=== PATIENT | female | born 1995 | race Caucasian/White ===

== ENCOUNTER → 2016-04-28 | Outpatient (CLI) | payer BC ==
--- NOTE | 2016-04-28 15:58 | US ---
EXAMINATION TYPE: US kidneys/renal and bladder DATE OF EXAM: 04/28/2016 2:46 PM COMPARISON: NONE CLINICAL HISTORY: N39.0 UTI. Prior right flank pain; recurrent UTI EXAM MEASUREMENTS: Right Kidney: 10.9 x 5.6 x 3.7 cm Left Kidney: 10.4 x 5.7 x 5.0 cm Post Void Residual Volume: 17.2 mL TECHNOLOGIST IMPRESSION: Right Kidney: No hydronephrosis or masses seen Left Kidney: mid pole hyperechoic shadowing focus is noted = 0.2 x 0.3 x 0.3cm; prominent renal pelvi s noted but decreases in size distally Bladder: wnl Bilateral Jets seen: Yes Normal Post Void Residual: Yes There is a 2.9 mm echogenic focus in the mid polar region of the left kidney without shadowing. This may represent angiomyolipoma. 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
== END | disposition home or self-care (01) ==
LOC: RADUSWWP 14:10
PROVIDERS: ATTEND Family Medicine
DX: N39.0 Urinary tract infection, site not specified (principal)
CPT/HCPCS: 76770

== ENCOUNTER → 2020-01-12 | Outpatient (CLI) | payer BC ==
--- NOTE | 2020-01-12 20:18 | US ---
EXAMINATION TYPE: US kidneys/renal and bladder DATE OF EXAM: 01/12/2020 COMPARISON: Ultrasound 04/28/2016 CLINICAL HISTORY: 24-year-old female Z86.018 Personal history of other benign neoplasm. TECHNIQUE: Multiple sonographic images of the kidneys and bladder are obtained. FINDINGS: Right Kidney: 11.2 X 3.5 X 4.7 cm without hydronephrosis. Left Kidney: 11.1 x 5.7 x 4.6 cm without hydronephrosis. There is a tiny 8 x 8 x 7 mm cortical lesion at the midpole. This may be partially cystic with some possible internal septations or calcification . The previous tiny 3 mm echogenic focus more centrally located in the mid pole is not identified on the current exam. Bladder: wnl Bilateral Jets seen: Yes IMPRESSION: 1. No hydronephrosis. 2. Possible tiny, mildly complex cortical cyst measuring 8 mm at the left renal midpole, not clearly seen on 04/28/2016. Six-month follow-up to reassess.
== END | disposition home or self-care (01) ==
LOC: RADUSWWP 14:51
PROVIDERS: ATTEND Family Medicine
DX: Z09 Encounter for follow-up examination after completed treatment for conditions other than malignant neoplasm (principal); N28.1 Cyst of kidney, acquired; Z86.018 Personal history of other benign neoplasm
CPT/HCPCS: 76770

== ENCOUNTER → 2020-06-21 | Outpatient (CLI) | payer BC ==
--- NOTE | 2020-06-21 14:20 | US ---
EXAMINATION TYPE: US kidneys/renal and bladder DATE OF EXAM: 06/21/2020 COMPARISON: 01/12/2020 CLINICAL HISTORY: N28.1 CORTICAL CYSTS. F/U left renal lesion, pt has no complaints at this time EXAM MEASUREMENTS: Right Kidney: 11.3 x 3.7 x 5.0 cm Left Kidney: 10.7 x 4.8 x 4.7 cm Right Kidney: Appeared wnl Left Kidney: Hypoechoic lesion mid/lower pole similar in appearance and size when compared to previou s, otherwise appeared wnl Bladder: Appeared wnl Bilateral Jets seen: Only left jet visualized No hydronephrosis or nephrolithiasis. IMPRESSION: Hypoechoic lesion does not meet the criteria of a simple cyst within the left kidney measuring 8 mm. This does not appear to be significantly changed in size relative to prior exam and could represent a complicated cyst. Neoplasm not excluded. Consider either MRI or pre and postcontrast CT scan.
== END | disposition home or self-care (01) ==
LOC: RADUSWWP 13:44
PROVIDERS: ATTEND Family Medicine
DX: N28.89 Other specified disorders of kidney and ureter (principal)
CPT/HCPCS: 76770

== ENCOUNTER → 2020-07-16 | Outpatient (CLI) | payer BC ==
--- NOTE | 2020-07-17 03:12 | MR ---
EXAMINATION TYPE: MR kidney wo/w con DATE OF EXAM: 07/16/2020 COMPARISON: Ultrasound 06/21/2020 HISTORY: Cyst on Left Kidney CONTRAST: Standard multiplanar, multisequence MRI departmental protocol utilizing 6 mL intravenous Gadavist lois olinium contrast. Multiplanar multiecho imaging of the abdomen was performed without and with IV contrast. There is 9 mm sharply marginated rounded low signal lesion on the lateral cortex lower pole left kidn ey. This has low signal on T2 images and shows no enhancement. This could be a cyst that contains ca lcium. In any event the lesion appears entirely benign. Liver shows no focal defect. There is intact spleen and pancreas. Pancreatic duct appears normal. Sto mach is intact. Kidneys have normal size. There is no hydronephrosis. There is no retroperitoneal kassidy nopathy. There is no adrenal mass. There is no evidence of pleural effusion. There is no ascites. Gallbladder appears normal. There is n ormal enhancement of the portal venous system. The bile ducts are not dilated IMPRESSION: Small nonenhancing sharply marginated rounded lesion on the left kidney consistent with benign diseas e. Size is not changed compared to recent ultrasound exam.
== END | disposition home or self-care (01) ==
LOC: RADMRIMAIN 15:17
PROVIDERS: ATTEND Nurse Practitioner Family
DX: N28.1 Cyst of kidney, acquired (principal)
CPT/HCPCS: 74183; A9585

== ENCOUNTER → 2021-01-20 | Outpatient (CLI) | payer BC ==
--- NOTE | 2021-01-21 11:01 | ECHOF ---
Referral Reason:Palpitations R00.2 MEASUREMENTS -------- HEIGHT: 165.1 cm WEIGHT: 59.0 kg BP: RVIDd: 2.4 cm (< 3.3) IVSd: 0.8 cm (0.6 - 1.1) LVIDd: 4.9 cm (3.9 - 5.3) LVPWd: 1.0 cm (0.6 - 1.1) IVSs: 1.2 cm LVIDs: 3.4 cm LVPWs: 1.2 cm LAESV Index (A-L): 13.40 ml/m Ao Diam: 2.6 cm (2.0 - 3.7) AV Cusp: 1.7 cm (1.5 - 2.6) MV EXCURSION: 27.892 mm (> 18.000) MV EF SLOPE: 103 mm/s (70 - 150) EPSS: 0.5 cm MV E Joseluis: 1.10 m/s MV DecT: 148 ms MV A Joseluis: 0.76 m/s MV E/A Ratio: 1.45 RAP: 5.00 mmHg RVSP: 27.34 mmHg FINDINGS -------- Sinus rhythm. This was a technically adequate study. The left ventricular size is normal. Left ventricular wall thickness is normal. Overall left vent ricular systolic function is normal with, an EF between 55 - 60 %. The diastolic filling pattern is normal for the age of the patient {E/E'}. The right ventricle is normal in size. Normal LA size by volume 22+/-6 ml/m2. The right atrial size is normal. Interatrial and interventricular septum intact. The aortic valve is trileaflet and appears structurally normal. There is no evidence of aortic regu rgitation. There is no evidence of aortic stenosis. No mitral regurgitation. Trace tricuspid regurgitation present. There is no evidence of pulmonary hypertension. The right ventricular systolic pressure, as measured by Doppler, is 27.34mmHg. There is no pulmonic regurgitation present. The aortic root size is normal. Normal inferior vena cava with normal inspiratory collapse consistent with estimated right atrial pre ssure of 5 mmHg. There is no pericardial effusion. CONCLUSIONS -------- 1. The left ventricular size is normal. 2. Left ventricular wall thickness is normal. 3. Overall left ventricular systolic function is normal with, an EF between 55 - 60 %. 4. The diastolic filling pattern is normal for the age of the patient {E/E'} 5. Trace tricuspid regurgitation present. BODILY INJURY ADJUSTER: Zena Cervantes RDCS
== END | disposition home or self-care (01) ==
LOC: RADECHMAIN 11:31
PROVIDERS: ATTEND Family Medicine
DX: I07.1 Rheumatic tricuspid insufficiency (principal); I49.3 Ventricular premature depolarization
CPT/HCPCS: 93270; 93306

== ENCOUNTER → 2021-01-26 | Outpatient (CLI) | payer BC ==
--- NOTE | 2021-01-26 08:44 | US ---
EXAMINATION TYPE: US thyroid st tissue head/neck DATE OF EXAM: 01/26/2021 COMPARISON: NONE CLINICAL HISTORY: E04.9 Goiter. Family history GLAND SIZE: Right Lobe: 5.2x1.5x1.3 cm Overall Parenchyma: homogenous Left Lobe: 4.3x1.6x1.1 cm Overall Parenchyma: homogeneous Isthmus Thickness: 0.3 cm NODULES RIGHT: # of nodules measured on right: 0 LEFT: # of nodules measured on left: 0 ISTHMUS: # of nodules measured in the isthmus: 0 Bilateral neck scanned, no evidence of lymphadenopathy. IMPRESSION: Normal thyroid scan
--- NOTE | 2021-01-28 10:59 | P.HOLTER ---
48 hour Holter monitor shows sinus rhythm with average heart rates of 89 beats a minute ranged from 60-152 beats a minute Intermittent PVCs, ventricular couplets, often in a bigeminal pattern Sinus tachycardia 1 episode of SVT with RVR
== END | disposition home or self-care (01) ==
LOC: RADUSWWP 07:37
PROVIDERS: ATTEND Family Medicine
DX: E04.9 Nontoxic goiter, unspecified (principal)
CPT/HCPCS: 76536

== ENCOUNTER → 2024-02-29 | Outpatient (CLI) | payer BC ==
--- NOTE | 2024-02-29 17:32 | CA ---
Transthoracic Echo Report Name: Jennie Bonner Age: 28 Gender: F : 1995 Exam Date: 02/29/2024 14:49 Exam Location: [place] [facility] Ht (in): 65 Wt (lb): 130 Ordering Physician: Theodore Costello DO Attending/Referring Phys: Kelsey Barrios [employer] Zena Cervantes RDCS Procedure CPT: Indications: I50.1 LEFT VENTRICULAR FAILURE, UNSPECIFIED Cardiac Hx: Technical Quality: Fair Contrast 1: Total Dose (mL): Contrast 2: Total Dose (mL): MEASUREMENTS (Male / Female) Normal Values 2D ECHO LV Diastolic Diameter PLAX 4.9 cm 4.2 - 5.9 / 3.9 - 5.3 cm LV Systolic Diameter PLAX 3.5 cm IVS Diastolic Thickness 0.7 cm 0.6 - 1.0 / 0.6 - 0.9 cm LVPW Diastolic Thickness 0.7 cm 0.6 - 1.0 / 0.6 - 0.9 cm LV Relative Wall Thickness 0.3 RV Internal Dim ED PLAX 2.9 cm LVOT Diameter 1.5 cm LV Diastolic Volume MOD BP 102.8 cm??? 67 - 155 / 56 - 104 cm??? LV Systolic Volume MOD BP 34.9 cm??? 22 - 58 / 19 - 49 cm??? LV Ejection Fraction MOD BP 66.1 % >= 55 % LV Cardiac Index MOD BP 3506.9 cm???/min???m??? LV Diastolic Volume MOD 4C 90.2 cm??? LV Systolic Volume MOD 4C 31.7 cm??? LV Ejection Fraction MOD 4C 64.9 % LV Cardiac Index MOD 4C 3023.8 cm???/min???m??? LV Diastolic Length 4C 7.6 cm LV Systolic Length 4C 6.3 cm LV Diastolic Volume MOD 2C 105.6 cm??? LV Systolic Volume MOD 2C 37.4 cm??? LV Ejection Fraction MOD 2C 64.6 % LV Cardiac Index MOD 2C 3523.7 cm???/min???m??? LV Diastolic Length 2C 8.5 cm LV Systolic Length 2C 6.7 cm LA Volume 23.4 cm??? 18 - 58 / 22 - 52 cm??? LA Volume Index 14.2 cm???/m??? 16 - 28 cm???/m??? M-MODE LV Diastolic Diameter MM 5.2 cm 4.2 - 5.9 / 3.9 - 5.3 cm LV Systolic Diameter MM 3.7 cm LV Cardiac Index MM Cristinoich 3871.0 cm???/min???m??? IVS Diastolic Thickness MM 0.7 cm 0.6 - 1.0 / 0.6 - 0.9 cm LVPW Diastolic Thickness MM 0.8 cm 0.6 - 1.0 / 0.6 - 0.9 cm LV Relative Wall Thickness MM 0.3 0.24 - 0.42 / 0.22 - 0.42 LV Mass Index MM 85.9 g/m??? 49 - 115 / 43 - 95 g/m??? DOPPLER AV Peak Velocity 124.0 cm/s AV Peak Gradient 6.2 mmHg AV Mean Velocity 92.6 cm/s AV Mean Gradient 3.7 mmHg AV Velocity Time Integral 26.1 cm LVOT Peak Velocity 92.8 cm/s LVOT Peak Gradient 3.4 mmHg LVOT Velocity Time Integral 18.4 cm LVOT Stroke Volume 32.7 cm??? LVOT Stroke Volume Index 19.9 ml/m??? LVOT Cardiac Index 1690.7 cm???/min???m??? AV Area Cont Eq vti 1.3 cm??? AV Area Cont Eq pk 1.3 cm??? MV Area PHT 4.0 cm??? Mitral E Point Velocity 80.2 cm/s Mitral A Point Velocity 48.8 cm/s Mitral E to A Ratio 1.6 MV Deceleration Time 188.6 ms MV E' Velocity 10.4 cm/s Mitral E to MV E' Ratio 7.7 FINDINGS Left Ventricle Normal left ventricular size, wall thickness, systolic function with no obvious regional wall motion abnormalities. Normal left ventricular diastolic filling pattern for age. The ejection fraction is visually estimated at 55-60 %. Right Ventricle The right ventricle is normal in size and function. Right Atrium The right atrium is normal in size. Left Atrium The left atrium is normal in size. Mitral Valve Structurally normal mitral valve without significant stenosis or prolapse. There is no mitral regurgitation. Aortic Valve Structurally normal aortic valve without significant sclerosis or stenosis. There is no aortic regurgitation. Tricuspid Valve Structurally normal tricuspid valve without significant stenosis. Pulmonary artery systolic pressure is normal. Pulmonic Valve Structurally normal pulmonic valve without significant stenosis. There is no pulmonic regurgitation. Pericardium Normal pericardium without effusion. Aorta Normal aortic root dimension. CONCLUSIONS LVEF 55 to 60% No obvious regional wall motion abnormality. Normal diastolic function No significant valvular dysfunction Normal RV size and systolic function Previewed by: Dr Pavel Camilo (Electronically Signed) Final Date: 29 February 2024 17:32
== END | disposition home or self-care (01) ==
LOC: RADECHMAIN 14:29
PROVIDERS: ATTEND Family Medicine
DX: I50.1 Left ventricular failure, unspecified (principal)
CPT/HCPCS: 93306